=== PATIENT | female | born 1995 | race American Indian/Alaskan Native ===

== ENCOUNTER 2017-11-26 12:45 | Emergency (ER) | payer MEDICAID, OTHER ==
[2017-11-26 13:51] LABS: Basophils % (Auto) 0.6 % (0.0-1.8); Eosinophils % (Auto) 0.6 % (0.0-4.3); Hematocrit 35.9 % (30.3-42.9); Hemoglobin 12.2 gm/dl (10.1-14.3); Lymphocytes % (Auto) 13.5 % (13.4-35.0); Mean Corpuscular HGB Conc 34 % (30-34); Mean Corpuscular Hemoglobin 31 pg (28-32); Mean Corpuscular Volume 89 fl (79-97); Monocytes # (Auto) 0.4 K/mm3 (0.0-0.8); Monocytes % (Auto) 5.7 % (0.0-7.3); Platelet Count 155 K/mm3 (140-440); Red Blood Count 4.02 M/mm3 (3.65-5.03); Red Cell Distribution Width 13.4 % (13.2-15.2)
[2017-11-26 13:55] LABS: Alanine Aminotransferase 8 units/L (7-56); BUN/Creatinine Ratio 18; Blood Urea Nitrogen 7 mg/dL (7-17); Hemolysis Index 3
--- NOTE | 2017-11-26 15:00 | Emergency Department Report ---
Blank Doc - Documentation Documentation: Patient is a 22-year-old female at 15 weeks and presents with abdominal pain she denies any vaginal bleeding or vaginal discharge will urinalysis blood work and OB ultrasound.
--- NOTE | 2017-11-26 15:57 | Ultrasound Report ---
FINAL REPORT EXAM: US OB > = 14 WEEKS FETUS HISTORY: abd pain TECHNIQUE: Ultrasound evaluation of the gravid uterus PRIORS: Pelvic ultrasound 02/21/2016 FINDINGS: There is a single viable intrauterine with documented cardiac activity. Multiple ultrasound measurements are made to determine a composite gestational age. Nonspecific slight abnormality of ratio. Cephalic index slightly increased at 86.4, upper normal 83.0. Other ratios are within normal limits. There is no evidence of placenta previa or abruption. The maternal cervix is closed. The quantity of visualized amniotic fluid appears grossly normal. No sonographic abnormality in the visualized portion of the anatomy. Heart rate: 152 beats per minute position: Cephalic Placental position: Anterior grade 0 Maternal cervix length: 3.5cm Ultrasound estimated gestational age: 15 weeks 4 days Ultrasound estimated delivery date: 05/16/2018 LMP estimated gestational age: 15 weeks 1 day LMP estimated delivery date: 05/19/2018 22 mm simple appearing cyst in left ovary may be a corpus luteum. IMPRESSION: Single viable intrauterine with the above parameters Nonspecific slightly increased cephalic index
[2017-11-26] MEDS ORDERED: TYLENOL PO ONE (16:12)
--- NOTE | 2017-11-26 16:12 | Emergency Department Report ---
ED Abdominal Pain HPI - General Chief Complaint: Abdominal Pain Stated Complaint: ABDOMINAL ABSCESS Time Seen by Provider: 11/26/17 16:04 Source: patient Mode of arrival: Ambulatory Limitations: No Limitations - History of Present Illness -: Gradual Location: periumbilical - Related Data Previous Rx's Medication Instructions Recorded Last Taken Type Doxycycline [Vibramycin] 100 mg PO Q12HR #28 capsule 02/21/16 Unknown Rx Ketorolac [Toradol] 10 mg PO Q6H PRN #20 tablet 02/21/16 Unknown Rx Ondansetron [Zofran Odt] 4 mg PO QID PRN #20 tab.rapdis 02/21/16 Unknown Rx metroNIDAZOLE [Flagyl] 500 mg PO Q12HR #14 tab 02/21/16 Unknown Rx Allergies Allergy/AdvReac Type Severity Reaction Status Date / Time No Known Allergies Allergy Verified 11/26/17 12:52 ED Review of Systems ROS: Stated complaint: ABDOMINAL ABSCESS Other details as noted in HPI Comment: All other systems reviewed and negative Skin: other (PERIUMBIILICAL PAIN) ED Past Medical Hx - Past Medical History Previous Medical History?: No - Surgical History Past Surgical History?: No - Social History Smoking Status: Never Smoker Substance Use Type: None - Medications Home Medications: Home Medications Medication Instructions Recorded Confirmed Last Taken Type Doxycycline [Vibramycin] 100 mg PO Q12HR #28 capsule 02/21/16 Unknown Rx Ketorolac [Toradol] 10 mg PO Q6H PRN #20 tablet 02/21/16 Unknown Rx Ondansetron [Zofran Odt] 4 mg PO QID PRN #20 tab.rapdis 02/21/16 Unknown Rx metroNIDAZOLE [Flagyl] 500 mg PO Q12HR #14 tab 02/21/16 Unknown Rx ED Physical Exam - General Limitations: No Limitations General appearance: alert - Head Head exam: Present: atraumatic - Eye Eye exam: Present: normal appearance - ENT ENT exam: Present: normal exam, mucous membranes moist - Neck Neck exam: Present: normal inspection - Respiratory Respiratory exam: Present: normal lung sounds bilaterally - Cardiovascular Cardiovascular Exam: Present: regular rate - GI/Abdominal GI/Abdominal exam: Present: soft, normal bowel sounds, other (GRAVID). Absent: distended, tenderness, guarding, rebound, rigid, diminished bowel sounds, hyperactive bowel sounds, hypoactive bowel sounds, organomegaly, mass, bruit, pulsatile mass, hernia - Extremities Exam Extremities exam: Present: normal inspection - Back Exam Back exam: Present: normal inspection - Neurological Exam Neurological exam: Present: alert, oriented X3, CN II-XII intact - Psychiatric Psychiatric exam: Present: normal affect, normal mood - Skin Skin exam: Present: warm, dry, intact, normal color ED Course Vital Signs 11/26/17 12:52 Pulse Rate 100 H Respiratory 16 Rate Blood Pressure 124/59 O2 Sat by Pulse 99 Oximetry - Reevaluation(s) Reevaluation #1: 11/26/17 16:15 Patient presents to the ER today with a very dramatic presentation of bellybutton peristasis she states it is so bad that she cannot sleep at night. Patient is 15 weeks . No vaginal bleeding or discharge. 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 She is on vitamins. Lab work was noted beta-hCG noted. UA noted. Ultrasound noted heart tones and activity present. This is patient's first she is on small petite side baseline. Discussion about expectations of PREG Patient educated on pain management. She will follow up with OB next week. ED Medical Decision Making - Lab Data Result diagrams: 11/26/17 13:05 11/26/17 13:05 - Radiology Data Radiology results: report reviewed - Medical Decision Making SEE NOTE - Differential Diagnosis RO SPONT AB Critical care attestation.: If time is entered above; I have spent that time in minutes in the direct care of this critically ill patient, excluding procedure time. ED Disposition Clinical Impression: , Umbilical pain Disposition: - TO HOME OR SELFCARE Is pt being admited?: No Does the pt Need Aspirin: No Condition: Stable Instructions: (ED) Additional Instructions: FOLLOW UP WITH OBGYN THIS WEEK TAKE TYLENOL FOR PAIN CONTINUE YOUR VITAMINS MAKE SURE YOU TELL OBGYN YOU WERE HERE SO THAT THEY CAN GET YOUR RESULTS. Referrals: PRIMARY CARE, [Primary Care Provider] - 3-5 Days Time of Disposition: 16:10
[2017-11-26 16:41] VITALS: BP 111/55
== END 2017-11-26 16:36 | disposition home or self-care (01) ==
LOC: ED 12:45
DX: O26.891 Other specified pregnancy related conditions, first trimester (principal); R10.33 Periumbilical pain; Z3A.15 15 weeks gestation of pregnancy
CPT/HCPCS: 36415; 76805; 80053; 84702; 84703; 85025; 86850; 86900; 86901

== ENCOUNTER 2018-05-29 20:29 | Inpatient (IN) | payer OTHER, MEDICAID ==
[2018-05-29] MEDS ORDERED: CERVIDIL VG ONE (21:33)
[2018-05-29] MEDS ORDERED: SUBLIMAZE IV PRN (21:33)
[2018-05-29 21:48] LABS: Hematocrit 35.9 % (30.3-42.9); Hemoglobin 12.2 gm/dl (10.1-14.3); Mean Corpuscular HGB Conc 34 % (30-34); Mean Corpuscular Hemoglobin 31 pg (28-32); Mean Corpuscular Volume 91 fl (79-97); Platelet Count 150 K/mm3 (140-440); Red Blood Count 3.97 M/mm3 (3.65-5.03); Red Cell Distribution Width 13.4 % (13.2-15.2)
[2018-05-29] MEDS ORDERED: LACTATED RINGERS 1,000 ML IV SCH (22:00)
[2018-05-29] MEDS ORDERED: BRETHINE IVP PRN (22:41)
[2018-05-29] MEDS ORDERED: MINERAL OIL PO PRN (22:41)
[2018-05-29] MEDS ORDERED: ZOFRAN IV PRN (22:41)
[2018-05-29] MEDS ORDERED: NARCAN 0.4 MG/1 ML IV PRN (22:41)
[2018-05-29] MEDS ORDERED: XYLOCAINE 2% INFILTRATI ONE (22:41)
[2018-05-29] MEDS ORDERED: PHENERGAN PO PRN (22:41)
[2018-05-29] MEDS ORDERED: BRETHINE SUB-Q PRN (22:41)
--- NOTE | 2018-05-29 22:49 | History and Physical Report ---
History of Present Illness Date of examination: 05/29/18 Date of admission: 05/29/18 20:29 Chief complaint: IOL for post dates History of present illness: This is a a22 yo at 41 + weeks admitted to labor and delivery for IOL. She is a patient of [facility]. Her problem list include UTi treated with abx and jorge neg. 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 She has anemia on iron once a day. Past History Past Medical History: no pertinent history Past Surgical History: no surgical history APPLIANCE ASSEMBLER History: herpes Family/Genetic History: sickle cell/trait (anemia ), other (pulmonary embolism ) Social history: smoking, alcohol abuse. denies: prescription drug abuse - Obstetrical History Expected Date of Delivery: 05/19/18 Actual Gestation: 41 Week(s) 3 Day(s) : 2 Para: 0 Hx # Term Pregnancies: 0 Number of Pregnancies: 0 Spontaneous Abortions: 0 Induced : 1 Number of Living Children: 0 Medications and Allergies Allergies Allergy/AdvReac Type Severity Reaction Status Date / Time No Known Allergies Allergy Verified 11/26/17 12:52 Home Medications Medication Instructions Recorded Confirmed Last Taken Type Doxycycline [Vibramycin] 100 mg PO Q12HR #28 capsule 02/21/16 Unknown Rx Ketorolac [Toradol] 10 mg PO Q6H PRN #20 tablet 02/21/16 Unknown Rx Ondansetron [Zofran Odt] 4 mg PO QID PRN #20 tab.rapdis 02/21/16 Unknown Rx metroNIDAZOLE [Flagyl] 500 mg PO Q12HR #14 tab 02/21/16 Unknown Rx Active Meds: Active Medications Butorphanol Tartrate (Stadol) 2 mg IV Q2H PRN PRN Reason: Pain , Severe (7-10) Fentanyl (Sublimaze) 100 mcg IV Q2H PRN PRN Reason: Labor Pain Lactated Ringer's (Lactated Ringers) 1,000 mls @ 125 mls/hr IV DIRECT CRISTINA Review of Systems All systems: negative - Vital Signs Vital signs: Vital Signs Pulse Pulse Ox 79 99 05/29/18 21:00 05/29/18 21:00 Temp Pulse Resp BP Pulse Ox 98.1 F 64 18 135/65 99 05/29/18 21:14 05/29/18 22:46 05/29/18 21:14 05/29/18 21:22 05/29/18 22:46 - Physical Exam Breasts: Positive: normal Cardiovascular: Regular rate, Normal S1 Lungs: Positive: Clear to auscultation, Normal air movement Abdomen: Positive: normal appearance, soft, normal bowel sounds. Negative: distention, tenderness, guarding Genitourinary (Female): Positive: normal external genitalia, normal perenium Vulva: both: normal Vagina: Positive: normal moisture Uterus: Positive: normal size Anus/Rectum: Positive: normal perianal skin Extremities: Positive: normal Deep Tendon Reflex Grade: Normal +2 - Obstetrical FHR: category 1 Uterine Contraction Monitor Mode: Palpation Cervical Dilatation: 0 Cervical Effacement Percentage: 40 station: -3 Uterine Tone Measurement Phase: Resting Results Result Diagrams: 05/29/18 21:28 All other labs normal. Assessment and Plan A/P HD#1 IOL for postdates GBS neg induction with cervidil offer epidural close monitor of maternal and fetus status epect vaginal delivery
[2018-05-29] MEDS ORDERED: PITOCin/NS 20 UNIT/1000ML DRIP 20 UNITS/1,000 ML BAG IV SCH (23:00)
[2018-05-29] MEDS ORDERED: PITOCin/NS 30 UNIT/500ML 30 UNITS/500 ML BAG IV SCH ×2 (23:00)
[2018-05-30] MEDS: LACTATED RINGERS 1,000 ML IV SCH ×2 (00:36→02:49)
[2018-05-30] MEDS ORDERED: AMBIEN PO PRN (01:01)
--- NOTE | 2018-05-30 07:50 | Event Note ---
Date: 05/30/18 Cervidil placed at 2339 reactive and Category 1 tracing irreg contractions P: D/C Cervidil as ordered Evaluate for cervical change and proceed with induction for postdates
[2018-05-30] MEDS: CYTOTEC VG PRN ×2 (15:33→21:17)
[2018-05-31] MEDS: STADOL IV PRN ×2 (03:32→07:41)
[2018-05-31] MEDS: LACTATED RINGERS 1,000 ML IV SCH ×3 (03:36→13:00)
--- NOTE | 2018-05-31 11:30 | Progress Note ---
Assessment and Plan A: IUP at 41w5d Day 2 of induction SROM this AM GBS Negative P: Routine intrapartum care Epidural Continue pitocin augmentation Subjective - Subjective Date of service: 05/31/18 Principal diagnosis: IUP at 41 wks undergoing induction of labor Interval history: Pt experienced SROM this morning. Very uncomfortable with contractions. Patient reports: other (Per HPI ) Objective - Vital Signs Vital Signs: Vital Signs - 12hr 05/30/18 05/30/18 05/30/18 23:50 23:54 23:55 Temperature Pulse Rate 94 H 60 56 L Blood Pressure O2 Sat by Pulse 98 93 98 Oximetry 05/31/18 05/31/18 05/31/18 00:00 00:05 00:10 Temperature Pulse Rate 60 57 L 59 L Blood Pressure O2 Sat by Pulse 97 95 97 Oximetry 05/31/18 05/31/18 05/31/18 00:15 03:26 03:37 Temperature Pulse Rate 68 55 L 75 Blood Pressure 145/73 O2 Sat by Pulse 99 97 Oximetry 05/31/18 05/31/18 05/31/18 03:42 03:47 03:52 Temperature Pulse Rate 68 67 60 Blood Pressure O2 Sat by Pulse 98 97 98 Oximetry 05/31/18 05/31/18 05/31/18 03:57 04:02 04:07 Temperature Pulse Rate 73 65 64 Blood Pressure O2 Sat by Pulse 98 97 97 Oximetry 05/31/18 05/31/18 05/31/18 04:12 04:25 04:26 Temperature Pulse Rate 78 67 64 Blood Pressure 140/80 O2 Sat by Pulse 97 97 Oximetry 05/31/18 05/31/18 05/31/18 04:31 04:36 04:41 Temperature Pulse Rate 65 67 58 L Blood Pressure O2 Sat by Pulse 97 98 97 Oximetry 05/31/18 05/31/18 05/31/18 04:46 04:51 06:25 Temperature Pulse Rate 63 62 53 L Blood Pressure 149/76 O2 Sat by Pulse 99 97 Oximetry 05/31/18 05/31/18 05/31/18 07:00 07:25 07:51 Temperature 97.5 F L Pulse Rate 54 L 59 L Blood Pressure 150/81 O2 Sat by Pulse 96 Oximetry 05/31/18 05/31/18 05/31/18 07:56 08:01 08:06 Temperature Pulse Rate 62 60 58 L Blood Pressure O2 Sat by Pulse 97 96 96 Oximetry 05/31/18 05/31/18 05/31/18 08:11 08:16 08:21 Temperature Pulse Rate 63 57 L 59 L Blood Pressure O2 Sat by Pulse 96 96 96 Oximetry 05/31/18 05/31/18 05/31/18 08:24 08:26 10:08 Temperature Pulse Rate 62 57 L 58 L Blood Pressure 152/73 135/87 O2 Sat by Pulse 93 96 Oximetry 05/31/18 05/31/18 10:25 11:25 Temperature Pulse Rate 53 L 54 L Blood Pressure 161/80 170/84 O2 Sat by Pulse Oximetry - Exam Breasts: deferred Cardiovascular: Regular rate Lungs: Clear to auscultation Abdomen: Present: soft (gravid ) Uterus: Present: normal (gravid ) FHR: auscultation normal Uterine Contraction Monitor Mode: External Cervical Dilatation: 1 Cervical Effacement Percentage: 80 (per RN ) station: -1 Uterine Contraction Pattern: Regular Uterine Tone Measurement Phase: Resting Uterine Contraction Intensity: Strong/Firm - Labs Labs: Laboratory Results - last 24 hr 05/29/18 21:28 RPR Nonreactive
[2018-05-31] MEDS ORDERED: fentaNYL-BUPIV 2 MCG/ML-0.125% 200 MCG/100 ML BAG EPIDURAL SCH (13:00)
[2018-05-31] MEDS ORDERED: NARCAN 2 MG/2 ML IV PRN (13:00)
--- NOTE | 2018-05-31 13:40 | Progress Note ---
Assessment and Plan A: Term Late decels Remote from delivery P: Primary C/S Subjective - Subjective Date of service: 05/31/18 Principal diagnosis: IUP at 41 wks undergoing induction of labor Patient reports: loss of fluid, movement normal, contractions, other (Per HPI ), no new complaints, no vaginal bleeding Objective - Vital Signs Vital Signs: Vital Signs - 12hr 05/31/18 05/31/18 05/31/18 03:26 03:37 03:42 Temperature Pulse Rate 55 L 75 68 Blood Pressure 145/73 O2 Sat by Pulse 97 98 Oximetry 05/31/18 05/31/18 05/31/18 03:47 03:52 03:57 Temperature Pulse Rate 67 60 73 Blood Pressure O2 Sat by Pulse 97 98 98 Oximetry 05/31/18 05/31/18 05/31/18 04:02 04:07 04:12 Temperature Pulse Rate 65 64 78 Blood Pressure O2 Sat by Pulse 97 97 97 Oximetry 05/31/18 05/31/18 05/31/18 04:25 04:26 04:31 Temperature Pulse Rate 67 64 65 Blood Pressure 140/80 O2 Sat by Pulse 97 97 Oximetry 05/31/18 05/31/18 05/31/18 04:36 04:41 04:46 Temperature Pulse Rate 67 58 L 63 Blood Pressure O2 Sat by Pulse 98 97 99 Oximetry 05/31/18 05/31/18 05/31/18 04:51 06:25 07:00 Temperature 97.5 F L Pulse Rate 62 53 L Blood Pressure 149/76 O2 Sat by Pulse 97 Oximetry 05/31/18 05/31/18 05/31/18 07:25 07:51 07:56 Temperature Pulse Rate 54 L 59 L 62 Blood Pressure 150/81 O2 Sat by Pulse 96 97 Oximetry 05/31/18 05/31/18 05/31/18 08:01 08:06 08:11 Temperature Pulse Rate 60 58 L 63 Blood Pressure O2 Sat by Pulse 96 96 96 Oximetry 05/31/18 05/31/18 05/31/18 08:16 08:21 08:24 Temperature Pulse Rate 57 L 59 L 62 Blood Pressure O2 Sat by Pulse 96 96 93 Oximetry 05/31/18 05/31/18 05/31/18 08:26 10:08 10:25 Temperature Pulse Rate 57 L 58 L 53 L Blood Pressure 152/73 135/87 161/80 O2 Sat by Pulse 96 Oximetry 05/31/18 05/31/18 05/31/18 11:25 12:25 12:33 Temperature Pulse Rate 54 L 68 71 Blood Pressure 170/84 144/65 O2 Sat by Pulse 98 Oximetry 05/31/18 05/31/18 05/31/18 12:38 12:42 12:43 Temperature Pulse Rate 63 65 67 Blood Pressure 126/63 O2 Sat by Pulse 99 98 Oximetry 05/31/18 05/31/18 05/31/18 12:45 12:48 12:51 Temperature Pulse Rate 71 70 80 Blood Pressure 129/61 136/68 130/77 O2 Sat by Pulse 98 Oximetry 05/31/18 05/31/18 05/31/18 12:53 12:54 12:57 Temperature Pulse Rate 62 61 71 Blood Pressure 132/68 124/61 O2 Sat by Pulse 100 Oximetry 05/31/18 05/31/18 05/31/18 12:58 13:00 13:03 Temperature Pulse Rate 70 67 74 Blood Pressure 122/59 123/63 O2 Sat by Pulse 99 99 Oximetry 05/31/18 05/31/18 05/31/18 13:06 13:08 13:09 Temperature Pulse Rate 67 65 67 Blood Pressure 121/61 131/62 O2 Sat by Pulse 99 Oximetry 05/31/18 05/31/18 05/31/18 13:12 13:13 13:15 Temperature Pulse Rate 64 68 71 Blood Pressure 126/62 132/69 O2 Sat by Pulse 97 Oximetry 05/31/18 05/31/18 05/31/18 13:18 13:21 13:23 Temperature Pulse Rate 67 76 59 L Blood Pressure 126/66 127/65 O2 Sat by Pulse 99 99 Oximetry 05/31/18 05/31/18 05/31/18 13:24 13:27 13:28 Temperature Pulse Rate 61 56 L 61 Blood Pressure 123/65 129/67 O2 Sat by Pulse 98 Oximetry 05/31/18 05/31/18 05/31/18 13:30 13:33 13:36 Temperature Pulse Rate 61 64 67 Blood Pressure 132/74 129/78 130/80 O2 Sat by Pulse 99 Oximetry 05/31/18 05/31/18 13:38 13:39 Temperature Pulse Rate 59 L 56 L Blood Pressure 135/69 O2 Sat by Pulse 99 Oximetry - Exam Breasts: deferred FHR: category 2 FHR comments: rep late decels with minimal variability Uterine Contraction Monitor Mode: External Cervical Dilatation: 3 Cervical Effacement Percentage: 70 station: -2 - Labs Labs: Laboratory Results - last 24 hr 05/29/18 21:28 RPR Nonreactive
[2018-05-31] MEDS ORDERED: BICITRA PO ONE (13:44)
[2018-05-31] MEDS ORDERED: REGLAN IV ONE (13:44)
[2018-05-31] MEDS ORDERED: PEPCID IV ONE (13:44)
[2018-05-31] MEDS ORDERED: LACTATED RINGERS 1,000 ML IV SCH (14:00)
[2018-05-31] MEDS ORDERED: ANCEF/STERILE WATER 2 GM/20 ML 2 GM/20 ML SYRINGE IV NR (14:00)
[2018-05-31] MEDS ORDERED: PITOCin/NS 20 UNIT/1000ML DRIP 20 UNITS/1,000 ML BAG IV SCH ×2 (14:00→18:07)
[2018-05-31] MEDS ORDERED: MARCAINE 0.5% 0 ML INFILTRATI ONE (14:03)
[2018-05-31] MEDS ORDERED: XYLOCAINE MPF 2% ONE ×3 (14:05→14:23)
[2018-05-31] MEDS ORDERED: WATER FOR IRRIG STERILE IR ONE (14:20)
[2018-05-31] MEDS ORDERED: NACL 0.9% IR ONE (14:20)
[2018-05-31] MEDS ORDERED: VERSED ONE (14:46)
[2018-05-31] MEDS ORDERED: SUBLIMAZE ONE (15:23)
--- NOTE | 2018-05-31 15:25 | Procedure Note ---
OB Delivery Note - Delivery Date of Delivery: 05/31/18 Surgeon: KATHRYN RAGLAND Estimated blood loss: other (600 mL) - Section Preop diagnosis: nonreassuring FHR tracing Postop diagnosis: same section procedure: section, primary low transverse Disposition: PACU Complications: none Narrative: Please see operative note. - Infant A at 1 minute: 8 at 5 minutes: 9 Infant Gender: Male (2689g (5lb 15 oz) @ 1438 pm)
--- NOTE | 2018-05-31 15:29 | Operative Report ---
Operative Report Operative Report: Date of procedure:May 31, 2018 Preoperative diagnosis: 1) IUP at 41w5d 2) Intolerance to Labor 3) NRFHTs - repetitive lates Postoperative diagnosis: Same Procedure: Primary low transverse section Surgeon: Megan Song M.D. Anesthesia: Epidural Findings: 1) Viable male , Apgars 8 and 9, weight 2689g, (5 lb 15 oz) in vertex presentation 2) Normal-appearing uterus ovaries and tubes Estimated blood loss: 600 mL IV fluids: 1000 mL Urine output: 200 mL, clear at the end of the procedure Drains: [place] to gravity Specimens: None Complications: None. Counts correct x 3 Disposition: Stable to PACU Indication for procedure: Pt is a 22 year old at 41w5d who was undergoing induction of labor and began to have repetitive late decelerations remote from delivery. The decision was made to proceed with section. Operation in detail: After the risks, benefits, alternatives and complications were explained to the patient she gave informed consent for the procedure. She was subsequently taken to the operating room where epidural anesthesia was noted to be adequate. She was subsequently placed in the dorsal supine position with leftward tilt and prepped and draped in a normal sterile fashion. heart tones were noted to be in the 145s prior to incision. A timeout was performed. A Pfannenstiel skin incision was made with the knife and carried down to the layer of the fascia with the Bovie. The fascia was incised in the midline and the fascial incision was extended bilaterally with the Bovie. Attention was then turned to the superior aspect of the incision which was grasped with two Kochers, tented up, and dissected off the rectus muscles. Attention was then turned to the inferior aspect of the incision which was grasped with two Kochers , tented up and dissected off the rectus muscles. The rectus muscles were then in the midline. The peritoneum was then entered bluntly. The peritoneal incision was extended with good visualization of the bladder. The peritoneal incision was then stretched. The bladder blade was placed. The vesicouterine peritoneum was grasped with smooth pickups and incised with Metzenbaum scissors. Metzenbaum scissors were used to extend the incision bilaterally. The bladder flap was then created digitally and the bladder blade was replaced. A transverse incision was made in the lower uterine segment with a knife and extended bilaterally with the bandage scissors. The head was delivered without difficulty followed by shoulders and body. was bulb suctioned at delivery. The cord was clamped and cut and the was handed to NICU staff in attendance. Cord blood was collected. The placenta was then delivered manually. The uterus was then cleared of all clots and debris. The hysterotomy was then reapproximated with 0 Vicryl in a running locked fashion. A second layer of the same suture was used in imbricating fashion. The hysterotomy was inspected and hemostasis was noted. The gutters were irrigated and cleared of all clots and debris. The hysterotomy was again inspected and noted to be hemostatic. Surgicel was placed over the hysterotomy. The peritoneum was reapproximated with 2-0 Vicryl in a running fashion incorporating the rectus muscles. The fascia was reapproximated with 0 Vicryl in a running fashion. The subcutaneous tissue was reapproximated with 3-0 Vicryl in a running fashion. The skin was reapproximated with 4-0 Vicryl in a subcuticular fashion. The incision was then covered with steri strips and a pressure dressing. The procedure was then ended. The patient tolerated the procedure well and was taken to the PACU in stable condition. All instrument, lap, and needle counts were correct 3.
[2018-05-31] MEDS ORDERED: ZOFRAN IV PRN (15:46)
[2018-05-31] MEDS ORDERED: NARCAN 0.4 MG/1 ML IV PRN ×2 (15:46→18:07)
[2018-05-31] MEDS ORDERED: PHENERGAN PO PRN (15:46)
[2018-05-31] MEDS ORDERED: BENADRYL IV PRN (15:46)
[2018-05-31] MEDS ORDERED: DILAUDID IV PRN (15:46)
[2018-05-31] MEDS ORDERED: PHENERGAN PR PRN (15:46)
[2018-05-31] MEDS ORDERED: TORADOL IV PRN (15:47)
[2018-05-31] MEDS ORDERED: SODIUM CHLORIDE FLUSH SYRINGE 10 ML IV NR ×2 (16:00→18:07)
--- NOTE | 2018-05-31 16:35 | Anesthesia Consultation ---
Anesthesia Consult and Med Hx - Airway Anesthetic Teeth Evaluation: Good ROM Head & Neck: Adequate Mental/Hyoid Distance: Adequate Mallampati Class: Class II Intubation Access Assessment: Probably Good - Pulmonary Exam CTA: Yes - Cardiac Exam Cardiac Exam: RRR - Pre-Operative Health Status ASA Pre-Surgery Classification: ASA2, Emergency Proposed Anesthetic Plan: Epidural - Pulmonary Hx Smoking: No Hx Asthma: No COPD: No Hx Pneumonia: No - Cardiovascular System Hx Hypertension: No - Central Nervous System Hx Seizures: No Hx Psychiatric Problems: No (anxiety) - Endocrine Hx Renal Disease: No Hx End Stage Renal Disease: No Hx Hypothyroidism: No Hx Hyperthyroidism: No - Hematic Hx Anemia: No Hx Sickle Cell Disease: No - Other Systems Hx Alcohol Use: No
[2018-05-31] MEDS ORDERED: KETALAR ONE (16:37)
[2018-05-31] MEDS ORDERED: MYLICON PO PRN (18:07)
[2018-05-31] MEDS ORDERED: LANSINOH TP PRN (18:07)
[2018-05-31] MEDS ORDERED: TUCKS PAD TP PRN (18:07)
[2018-05-31] MEDS: PERCOCET 5/325 PO PRN (21:30)
[2018-05-31] MEDS: ANCEF/NS 1 GM/50 ML 1 GM/50 ML BAG IV SCH (21:35)
[2018-05-31] MEDS: D5LR 1,000 ML IV SCH (21:39)
[2018-05-31] MEDS: TORADOL IV PRN (23:34)
[2018-06-01] MEDS: PERCOCET 5/325 PO PRN ×4 (04:08→18:55)
[2018-06-01] MEDS ORDERED: M-M-R II VACCINE SUB-Q ONE (06:00)
[2018-06-01] MEDS ORDERED: BOOSTRIX IM ONE (06:00)
[2018-06-01] MEDS: TORADOL IV PRN (06:10)
[2018-06-01] MEDS: ANCEF/NS 1 GM/50 ML 1 GM/50 ML BAG IV SCH (06:11)
[2018-06-01] MEDS: D5LR 1,000 ML IV SCH (06:14)
[2018-06-01 06:17] LABS: Hematocrit 34.4 % (30.3-42.9); Hemoglobin 11.9 gm/dl (10.1-14.3)
[2018-06-01] MEDS: FEOSOL PO SCH (08:42)
--- NOTE | 2018-06-01 09:05 | Progress Note ---
Assessment and Plan O: VSS AF PP H/H: 11.9/34.4 A: Stable POD #1 P: Routine orders Subjective - Subjective Date of service: 06/01/18 Principal diagnosis: IUP at 41 wks undergoing induction of labor Patient reports: appetite normal (Taking regular diet this am), voiding normally , pain well controlled, flatus, ambulating normally [place]: doing well, bottle feeding Objective - Vital Signs Latest vital signs: Vital Signs Temp Pulse Resp BP BP Pulse Ox 06/01/18 07:48 98.2 F 89 18 107/60 96 06/01/18 06:10 18 06/01/18 04:08 20 06/01/18 04:05 98.0 F 68 20 128/53 06/01/18 00:00 98 F 77 20 138/54 05/31/18 23:34 18 05/31/18 21:30 20 05/31/18 20:05 98.0 F 86 20 134/75 05/31/18 17:25 98.6 F 70 20 123/65 05/31/18 16:41 74 18 139/69 99 05/31/18 16:26 72 14 138/77 98 05/31/18 16:11 66 14 137/75 99 05/31/18 15:56 73 14 147/80 99 05/31/18 15:51 89 22 134/77 98 05/31/18 15:46 99.2 F 72 16 144/55 99 05/31/18 15:41 99.2 F 74 14 143/71 99 05/31/18 14:19 77 131/77 96 05/31/18 14:06 64 147/95 05/31/18 14:03 57 L 142/86 05/31/18 14:00 57 L 146/83 05/31/18 13:57 62 143/81 05/31/18 13:54 59 L 143/78 05/31/18 13:53 59 L 100 05/31/18 13:51 56 L 148/77 05/31/18 13:48 59 L 126/71 100 05/31/18 13:45 59 L 137/75 05/31/18 13:43 56 L 100 05/31/18 13:42 55 L 137/74 05/31/18 13:39 56 L 135/69 05/31/18 13:38 59 L 99 05/31/18 13:36 67 130/80 05/31/18 13:33 64 129/78 99 05/31/18 13:30 61 132/74 05/31/18 13:28 61 98 05/31/18 13:27 56 L 129/67 05/31/18 13:24 61 123/65 05/31/18 13:23 59 L 99 05/31/18 13:21 76 127/65 05/31/18 13:18 67 126/66 99 05/31/18 13:15 71 132/69 05/31/18 13:13 68 97 05/31/18 13:12 64 126/62 05/31/18 13:09 67 131/62 05/31/18 13:08 65 99 05/31/18 13:06 67 121/61 05/31/18 13:03 74 123/63 99 05/31/18 13:00 67 122/59 05/31/18 12:58 70 99 05/31/18 12:57 71 124/61 05/31/18 12:54 61 132/68 05/31/18 12:53 62 100 05/31/18 12:51 80 130/77 05/31/18 12:48 70 136/68 98 05/31/18 12:45 71 129/61 05/31/18 12:43 67 98 05/31/18 12:42 65 126/63 05/31/18 12:38 63 99 05/31/18 12:33 71 98 05/31/18 12:25 68 144/65 05/31/18 11:25 54 L 170/84 05/31/18 10:25 53 L 161/80 05/31/18 10:08 58 L 135/87 Intake and Output 05/31/18 06/01/18 06/01/18 22:59 06:59 14:59 Intake Total 320 1120 Output Total 600 600 Balance -280 520 Intake: IV 200 1000 ANCEF/NS 1 GM/50 ML 1 gm 50 In 50 ml @ 100 mls/hr IV Q8H CRISTINA Rx#:[id number] D5lr 1,000 ml @ 125 mls/ 1000 hr IV DIRECT CRISTINA Rx#: [id number] Oral 120 120 Output: Urine 600 600 Indwelling Catheter 500 600 Other: Total, Intake Amount 120 120 Total, Output Amount 500 600 Estimated Blood Loss 600 - Exam Breasts: Present: deferred Abdomen: Present: normal appearance, soft, tenderness. Absent: distention Uterus: Present: normal, firm, fundal height below umbilicus. Absent: bogginess , tenderness Extremities: Present: normal. Absent: edema Incision: Present: normal, dry, intact, dressed
[2018-06-01] MEDS ORDERED: MILK OF MAGNESIA PO SCH (16:00)
[2018-06-02] MEDS: PERCOCET 5/325 PO PRN ×3 (02:34→23:57)
--- NOTE | 2018-06-02 09:01 | Progress Note ---
Assessment and Plan A/P POD#2 s/p primary c/sec for distress VSS continue routine care valtrex for hsv2 outbreak MOM for flatus Subjective - Subjective Date of service: 06/02/18 Principal diagnosis: IUP at 41 wks undergoing induction of labor Interval history: This is a a22 yo at 41 + weeks admitted to labor and delivery for IOL. She is a patient of [facility]. Her problem list include UTi treated with abx and jorge neg. 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 She has anemia on iron once a day. Patient reports: appetite normal, voiding normally, pain well controlled, flatus , ambulating normally [place]: doing well Objective - Vital Signs Latest vital signs: Vital Signs Temp Pulse Resp BP BP Pulse Ox 06/02/18 00:00 98.0 F 70 20 123/66 06/01/18 15:44 97.9 F 86 18 107/57 98 06/01/18 11:35 98.6 F 93 H 18 100/54 96 Intake and Output 06/01/18 06/02/18 06/02/18 23:59 07:59 15:59 Intake Total 780 240 Output Total 500 Balance 280 240 Intake: Oral 780 240 Output: Urine 500 Indwelling Catheter 500 Other: Total, Intake Amount 240 240 Total, Output Amount 500 # Voids Indwelling Catheter 3 - Exam Breasts: Present: normal Cardiovascular: Present: Regular rate, Normal S1 Lungs: Present: Clear to auscultation, Normal air movement Abdomen: Present: normal appearance, soft, normal bowel sounds. Absent: distention, tenderness, guarding Vulva: both: normal Uterus: Present: normal, firm, fundal height below umbilicus. Absent: bogginess , tenderness Extremities: Present: normal Deep Tendon Reflex Grade: Normal +2 Incision: Present: normal, dry, intact, dressed
[2018-06-02] MEDS ORDERED: CITRATE OF MAGNESIA PO PRN (10:00)
[2018-06-02] MEDS ORDERED: VALTREX PO ONE (10:00)
[2018-06-02] MEDS: FEOSOL PO SCH (12:04)
[2018-06-02] MEDS: MOTRIN PO PRN (23:55)
--- NOTE | 2018-06-03 09:33 | Progress Note ---
Assessment and Plan - Patient Problems (1) Status post primary low transverse section Current Visit: Yes Status: Acute Plan to address problem: Patient doing well Discharge home Subjective - Subjective Date of service: 06/03/18 Principal diagnosis: IUP at 41 wks undergoing induction of labor Interval history: Patient without any significant complaints. She is tolerating a regular diet and her pain is well-controlled. Patient reports: appetite normal, voiding normally, pain well controlled [place]: doing well Objective - Vital Signs Latest vital signs: Vital Signs Temp Pulse Resp BP BP Pulse Ox 06/03/18 07:27 97.4 F L 76 16 128/77 92 06/03/18 00:34 98.8 F 75 20 137/65 96 06/02/18 17:14 98.7 F 87 18 108/63 96 06/02/18 15:45 97.8 F 65 20 117/63 97 Intake and Output 06/02/18 06/03/18 06/03/18 22:59 06:59 14:59 Intake Total 840 Balance 840 Intake: Oral 600 Intake, Free Water 240 Other: Total, Intake Amount 600 Voiding Method Toilet # Voids 3 - Exam Abdomen: Present: normal appearance, soft Uterus: Present: normal, firm
--- NOTE | 2018-06-03 09:35 | Discharge Summary ---
Providers - Providers Date of Admission: 05/29/18 20:29 Date of discharge: 06/03/18 Attending physician: BISMARK MCCLURE MD 05/31/18 18:07 Consult to Curtain Inspector [CONS] Routine Reason For Exam: Primary care physician: BISMARK MCCLURE MD Hospitalization Reason for admission: induction of labor Delivery: Procedure: section, primary low transverse Incision: normal Discharge diagnosis: IUP at term delivered Hospital course: The patient was admitted for induction of labor for postdates. Her intrapartum course was complicated by nonreassuring heart rate tracing with the patient underwent a primary delivery. Please see operative note for details of surgery. Her postoperative course was uneventful. Condition at discharge: Good Disposition: DC-01 TO HOME OR SELFCARE - Discharge Diagnoses (1) Status post primary low transverse section Status: Acute Plan - Discharge Medications Prescriptions: Docusate Sodium [Colace] 100 mg PO BID PRN #60 capsule PRN Reason: Constipation Ibuprofen [Motrin] 800 mg PO Q8HR PRN #60 tablet PRN Reason: Pain, Mild (1-3) Oxycodone HCl/Acetaminophen [Percocet 7.5/325 mg] 1 each PO Q6HR PRN #45 tablet PRN Reason: Pain - Provider Discharge Summary Activity: no sex for 6 weeks, no heavy lifting 4 weeks, no strenuous exercise Diet: routine Instructions: routine Additional instructions: [] Smoking cessation referral if applicable(refer to patient education folder for contact #) [] Refer to [facility] Booklet Call your doctor immediately for: * Fever > 100.5 * Heavy vaginal bleeding ( >1 pad per hour) * Severe persistent headache * Shortness of breath * Reddened, hot, painful area to leg or breast * Drainage or odor from incision. * Keep incision clean and dry at all times and follow doctor's instructions regarding bathing/showering Scheduled follow-up at [place] [facility] in 2 weeks - Follow up plan
[2018-06-03] MEDS: FEOSOL PO SCH (10:15)
[2018-06-03] MEDS: MOTRIN PO PRN (10:15)
[2018-06-03] MEDS: PERCOCET 5/325 PO PRN (10:17)
[2018-06-03 17:04] VITALS: BP 138/93
== END 2018-06-03 17:15 | disposition home or self-care (01) | DRG 765 ==
LOC: LD 20:29 → APU 05-31 17:40 → OB 05-31 17:45
PROVIDERS: ADMIT Obstetrics & Gynecology; ATTEND Obstetrics & Gynecology
PROC: 3E0P7VZ Introduction of Hormone into Female Reproductive, Via Natural or Artificial Opening (ICD-10-PCS; 2018-05-29)
PROC: 10D00Z1 Extraction of Products of Conception, Low, Open Approach (ICD-10-PCS; principal; 2018-05-31)
DX: O48.0 Post-term pregnancy (principal); O98.52 Other viral diseases complicating childbirth; O75.0 Maternal distress during labor and delivery; Z3A.41 41 weeks gestation of pregnancy; O76 Abnormality in fetal heart rate and rhythm complicating labor and delivery; Z37.0 Single live birth; Z83.2 Family history of diseases of the blood and blood-forming organs and certain disorders involving the immune mechanism; Z84.89 Family history of other specified conditions; Z79.899 Other long term (current) drug therapy; Z79.2 Long term (current) use of antibiotics; D64.9 Anemia, unspecified; O99.02 Anemia complicating childbirth; B00.9 Herpesviral infection, unspecified; O99.334 Smoking (tobacco) complicating childbirth; F10.10 Alcohol abuse, uncomplicated; O99.314 Alcohol use complicating childbirth; O42.02 Full-term premature rupture of membranes, onset of labor within 24 hours of rupture
CPT/HCPCS: 36415; 59200; 85014; 85018; 85027; 86592; 86850; 86900; 86901; 99211; A6250; G0463; J0595; J0690; J1170; J1885; J2250; J2590; J2765; J3010; J7120; J7121

== ENCOUNTER 2021-05-09 13:51 | Outpatient (CLI) | payer MEDICAID, OTHER ==
[2021-05-09 14:30] VITALS: BP 119/60
[2021-05-09] MEDS ORDERED: LACTATED RINGERS 500 ML IV ONE (16:00)
[2021-05-09 16:18] LABS: Bacteria,Urine 2+ /HPF (Negative); Bilirubin,Urine NEG (Negative); Blood,Urine NEG (Negative); Color,Urine Straw (Yellow); Protein,Urine <15 mg/dL mg/dL (Negative); Urobilinogen,Urine < 2.0 mg/dL (<2.0); WBC,Urine < 1.0 /HPF (0.0-6.0)
== END 2021-05-09 19:29 | disposition home or self-care (01) ==
LOC: TRG 13:51 → APU 13:52 → TRG 19:29
PROVIDERS: ATTEND Obstetrics & Gynecology
DX: O26.893 Other specified pregnancy related conditions, third trimester (principal); R10.30 Lower abdominal pain, unspecified; Z3A.30 30 weeks gestation of pregnancy
CPT/HCPCS: 59025; 81001; 87086; 96360; 96361; J7120

== ENCOUNTER 2021-08-11 14:26 | Inpatient (IN) | payer MEDICAID ==
[~2021-08-11 14:26] MED LIST: KETOROLAC 30 MG/1 ML INJ ONE
[2021-08-11] MEDS ORDERED: METOCLOPRAMIDE 10 MG/2 ML INJ IV NR (14:53)
[2021-08-11] MEDS ORDERED: BICITRA ORAL LIQD 30ML PO NR (14:53)
[2021-08-11] MEDS ORDERED: FAMOTIDINE 20 MG/2 ML INJ IV NR (14:53)
[2021-08-11] MEDS ORDERED: METHYLERGONOVINE MALEATE 0.2 MG/ML VIAL IM NR (14:54)
[2021-08-11] MEDS ORDERED: ceFAZolin/Water 2 GM/20 ML 2 GM/20 ML SYRINGE IV NR (15:00)
[2021-08-11] MEDS ORDERED: OXYTOCIN DRIP 30 UNITS/500 ML BAG IV SCH ×2 (15:00→20:15)
[2021-08-11 15:21] LABS: Basophils # (Auto) 0.1 K/mm3 (0.0-0.1); Basophils % (Auto) 0.6 % (0.0-1.8); Eosinophils % (Auto) 0.3 % (0.0-4.3); Hematocrit 39.4 % (30.3-42.9); Hemoglobin 12.9 gm/dl (10.1-14.3); Lymphocytes # (Auto) 1.7 K/mm3 (1.2-5.4); Lymphocytes % (Auto) 20.3 % (13.4-35.0); Mean Corpuscular HGB Conc 33 % (30-34); Mean Corpuscular Volume 89 fl (79-97); Monocytes # (Auto) 0.5 K/mm3 (0.0-0.8); Platelet Count 179 K/mm3 (140-440); Red Blood Count 4.44 M/mm3 (3.65-5.03)
[2021-08-11] MEDS: LACTATED RINGERS 1,000 ML IV SCH ×2 (15:25→15:57)
--- NOTE | 2021-08-11 15:41 | Anesthesia Day of Surgery ---
Anesthesia Day of Surgery - Day of Surgery Patient Examined: Yes Patient H&P Reviewed: Yes Patient is NPO: Yes Beta Blockers: No Cardiac Clearance: No Pulmonary Clearance: No Blu's Test: Negative
--- NOTE | 2021-08-11 15:42 | Anesthesia Consultation ---
Anesthesia Consult and Med Hx Date of service: 08/11/21 - Airway Anesthetic Teeth Evaluation: Poor ROM Head & Neck: Adequate Mental/Hyoid Distance: Adequate Mallampati Class: Class II Intubation Access Assessment: Probably Good - Pulmonary Exam CTA: Yes - Cardiac Exam Cardiac Exam: RRR - Pre-Operative Health Status ASA Pre-Surgery Classification: ASA2 Proposed Anesthetic Plan: Spinal - Pulmonary Hx Smoking: No Hx Asthma: No Hx Respiratory Symptoms: No SOB: No COPD: No Home Oxygen Therapy: No Hx Pneumonia: No Hx Sleep Apnea: No - Cardiovascular System Hx Hypertension: No Hx Coronary Artery Disease: No Hx Heart Attack/AMI: No Hx Angina: No Hx Percutaneous Transluminal Coronary Angioplasty (PTCA): No Hx Cardia Arrhythmia: No Hx Pacemaker: No Hx Internal Defibrillator: No Hx Valvular Heart Disease: No Hx Heart Murmur: No Hx Peripheral Vascular Disease: No - Central Nervous System Hx Neuromuscular Disorder: No Hx Seizures: No CVA: No Hx Back Pain: Yes Hx Psychiatric Problems: No (anxiety) - Gastrointestinal Hx Ulcer: No Hx Gastroesophageal Reflux Disease: Yes - Endocrine Hx Renal Disease: No Hx End Stage Renal Disease: No Hx Cirrhosis: No Hx Liver Disease: No Hx Insulin Dependent Diabetes: No Hx Non-Insulin Dependent Diabetes: No Hx Thyroid Disease: No Hx Hypothyroidism: No Hx Hyperthyroidism: No - Hematic Hx Anemia: No Hx Sickle Cell Disease: No - Other Systems Hx Alcohol Use: No Hx Substance Use: No Hx Cancer: No Hx Obesity: No
[2021-08-11] MEDS ORDERED: NALOXONE 0.4 MG/1 ML INJ IV PRN ×2 (15:44→20:15)
--- NOTE | 2021-08-11 16:24 | History and Physical Report ---
History of Present Illness Date of examination: 08/12/21 Date of admission: 08/11/21 14:26 Chief complaint: sent from the office History of present illness: Pt is a 26 year old CLAUDIA 08/17/21 a 39w1d who presents from the office with finding of oligohydramnios on routine obstetric ultrasound. She denies contractions, vaginal bleeding or leakage of fluid. She has had care at [facility] since 12 wks complicated by prior section, nausea and vomiting, GERD, and genital herpes without lesion or prodrome. She is GBS negative. 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 Family/Genetic History: other (anemia ) Social history: no significant social history - Obstetrical History Expected Date of Delivery: 08/17/21 Actual Gestation: 39 Week(s) 2 Day(s) : 3 Para: 1 Hx # Term Pregnancies: 1 Number of Pregnancies: 0 Spontaneous Abortions: 1 Induced : 0 Number of Living Children: 1 Medications and Allergies Allergies Allergy/AdvReac Type Severity Reaction Status Date / Time No Known Allergies Allergy Verified 11/26/17 12:52 Home Medications Medication Instructions Recorded Confirmed Last Taken Type oxyCODONE /ACETAMINOPHEN [Percocet 1 tab PO Q6HR PRN #30 tablet 08/11/21 Unknown Rx 5/325] Active Meds: Active Medications Citric Acid/Sodium Citrate (Bicitra Oral Liqd 30ml) 30 ml PO ONCE NR Stop: 08/11/21 18:00 Last Admin: 08/11/21 15:26 Dose: 30 ml Documented by: Famotidine (Famotidine 20 Mg/2 Ml Inj) 20 mg IV ONCE NR Stop: 08/11/21 18:00 Last Admin: 08/11/21 15:26 Dose: 20 mg Documented by: Hydromorphone HCl (Hydromorphone 1 Mg/1 Ml Inj) 0.5 mg IV Q5M PRN PRN Reason: BREAK Stop: 08/11/21 23:00 Hydromorphone HCl (Hydromorphone 1 Mg/1 Ml Inj) 0.5 mg IV Q4H PRN PRN Reason: breakthrough pain > 7/10 Lactated Ringer's (Lactated Ringers) 1,000 mls @ 2,250 mls/hr IV PREOP CRISTINA Stop: 10/27/21 15:27 Last Admin: 08/11/21 15:57 Dose: 2,250 mls/hr Documented by: Oxytocin/Sodium Chloride (Pitocin/Ns 30 Unit/500ml) 30 units in 500 mls @ 0 mls/hr IV TITR CRISTINA; Protocol Cefazolin Sodium (Ancef/Sterile Water 2 Gm/20 Ml) 2 gm in 20 mls @ 80 mls/hr IV PREOP NR; Protocol Stop: 08/11/21 20:00 Methylergonovine Maleate (Methylergonovine Maleate 0.2 Mg/Ml Vial) 0.2 mg IM ONCE NR Stop: 08/11/21 18:00 Metoclopramide HCl (Metoclopramide 10 Mg/2 Ml Inj) 10 mg IV ONCE NR Stop: 08/11/21 18:00 Last Admin: 08/11/21 15:26 Dose: 10 mg Documented by: Naloxone HCl (Naloxone 0.4 Mg/1 Ml Inj) 0.2 mg IV Q2MIN PRN PRN Reason: Res Rate </= 8 or 02 SAT < 92% Ondansetron HCl (Ondansetron 4 Mg/2 Ml Inj) 4 mg IV Q8H PRN PRN Reason: Nausea And Vomiting Review of Systems All systems: negative - Vital Signs Vital signs: Vital Signs Pulse BP Pulse Ox 82 130/79 100 08/11/21 15:12 08/11/21 15:12 08/11/21 15:12 Temp Pulse Resp BP Pulse Ox 99 H 130/79 100 08/11/21 16:17 08/11/21 15:12 08/11/21 16:17 - Physical Exam Breasts: Positive: deferred Abdomen: Positive: soft (gravid ) Uterus: Positive: enlarged (gravid ) Extremities: Positive: normal - Obstetrical FHR: auscultation normal Uterine Contraction Monitor Mode: External Cervical Dilatation: 0 Uterine Contraction Pattern: Absent Uterine Tone Measurement Phase: Resting Results Result Diagrams: 08/11/21 15:10 Abnormal lab results 08/11/21 Range/Units 15:10 Seg Neutrophils % 72.8 H (40.0-70.0) % All other labs normal. Assessment and Plan A: IUP at 39w1d Previous x 1 Oligohydramnios Nausea and vomiting GERD Genital herpes without lesion or prodrome GBS negative P: Admit to labor and delivery Prepare for repeat section and other indicated procedures
[2021-08-11] MEDS ORDERED: ONDANSETRON 4 MG/2 ML INJ IV PRN (16:30)
[2021-08-11] MEDS ORDERED: HYDROmorphone 1 MG/1 ML INJ IV PRN ×2 (16:30)
[2021-08-11] MEDS ORDERED: PHENYLEPHRINE/NS 1,000 MCG/10 ML SYRINGE (OR USE) IV ONE (16:36)
[2021-08-11] MEDS ORDERED: ceFAZolin/STERILE WATER 2 GM/20 ML SYRINGE IV ONE (16:40)
[2021-08-11] MEDS ORDERED: dexAMETHasone 20 MG/5 ML VIAL ONE (17:28)
[2021-08-11] MEDS ORDERED: BUPIVACAINE/PF (0.25%) 2.5 MG/ML 30 ML VIAL INFILTRATI ONE (17:29)
--- NOTE | 2021-08-11 17:52 | Procedure Note ---
OB Delivery Note - Delivery Date of Delivery: 08/11/21 Surgeon: KATHRYN RAGLAND Estimated blood loss: other (494 mL) - Section Preop diagnosis: repeat , other (Oligohydramnios ) Postop diagnosis: same section procedure: section, repeat low transverse Disposition: PACU Narrative: Please see operative report - Infant A at 1 minute: 9 at 5 minutes: 9 Gender: Male (2985g (6lb 9oz) @ 1701 pm)
--- NOTE | 2021-08-11 17:57 | Operative Report ---
Operative Report Operative Report: Date of procedure: August 11, 2021 Preoperative diagnosis: 1) IUP at 39w1d 2) Previous x 1 3) Oligoh ydramnios Postoperative diagnosis: Same Procedure: Repeat low transverse section Surgeon: Megan Song M.D. Anesthesia: Spinal Findings: 1) Viable male , Apgars 9 and 9, weight 2985 g, (6 lb 9 oz) in cephalic presentation. Nuchal cord x 1 2) Normal-appearing uterus ovaries and tubes Estimated blood loss: 494 mL IV fluids: 1400 mL Urine output: 200 mL, clear at the end of the procedure Drains: [place] to gravity Specimens: None Complications:None. Counts correct x 3 Disposition: Stable to PACU Indication for procedure: Pt is a 26 year old at 39w1d with one prior section and oligohydramnios for repeat section. Operation in detail: After the risks, benefits, alternatives and complications were explained to the patient she gave informed consent for the procedure. She was subsequently taken to the operating room where regional anesthesia was noted to be adequate. She was placed in the dorsal supine position with leftward tilt and prepped and draped in a normal sterile fashion. heart tones were noted prior to incision. A timeout was performed. A Pfannenstiel skin incision was made with the knife and carried down to the layer of the fascia with the Bovie. The fascia was incised in the midline and the fascial incision was extended bilaterally with the Bovie. The fascial incision was then stretched. The rectus muscles were then in the midline and partially transected for adequate visualization. The peritoneum was then entered bluntly. The peritoneal incision was extended with good visualization of the bladder. The peritoneal incision was then stretched. An Gabo retractor was placed. The bladder blade was then placed. The vesicouterine peritoneum was grasped with smooth pick ups and incised with Metzenbaum scissors . A bladder flap was then created digitally and the bladder blade was replaced. A transverse incision was made in the lower uterine segment with a knife and extended bilaterally with the bandage scissors. Amniotomy was performed with egress of clear fluid. head delivered with ease, nuchal cord x 1 reduced, followed by shoulders and body. bulb suctioned at delivery. Cord clamped and cut. handed to NICU staff in attendance. Cord blood was collected. The placenta was then delivered manually. The uterus was then exteriorized and cleared of all clots and debris. The hysterotomy was then reapproximated with 0 Moncryl in a running locked fashion. A second layer of the same suture was used in imbricating fashion. The hysterotomy was inspected and hemostasis was noted. The gutters were irrigated and cleared of all clots and debris. The uterus was placed back into the peritoneal cavity. The hysterotomy was again inspected and noted to be hemostatic. Surgicel was placed over the hysterotomy. The Gabo retractor was removed. The peritoneum was reapproximated with 0 Monocryl in a running fashion incorporating the rectus muscles. Surgicel was placed over the rectus muscles. The fascia was reapproximated with 0 Vicryl in a running fashion. The skin was reapproximated with 3-0 Monocryl in a subcuticular fashion. The incision was then covered with steri strips and a pressure dressing. The procedure was then ended. The patient tolerated the procedure well and was taken to the PACU in stable condition. All instrument, lap, and needle counts were correct 3.
--- NOTE | 2021-08-11 18:05 | Progress Note ---
Spinal Anesthesia Block - Spinal Anesthesia Block Start Time: 16:25 Stop Time: 16:31 Performed by:: HAILEY COLE Procedure: Patient IDed, H&P reviewed, all questions and concerns were answered, and consent was signed. Timeout was performed at bedside. Patient in sitting position. Sterile prep and drape was performed. [3] ml of 1% lidocaine skin wheal at L[3]- L [4]. Needle introducer advanced. 25 gauge spinal needle advanced. Clear, free flowing CSF. negative blood, negative paresthesia. Spinal dose given. All needles removed. Patient tolerated procedure.
--- NOTE | 2021-08-11 18:06 | Progress Note ---
Regional Anesthesia Block - Regional Anesthesia Block Start Time: 17:50 Stop Time: 17:52 Performed By:: HAILEY COLE Procedure: Patient consented for TAP block for post surgical pain management. Patient identified, monitors placed, and time out performed. TAP identified bilaterally via ultrasound. Skin prepped bilaterally with [chlorhexidine] and [22g stimuplex] needle advanced to the TAP. [Marcaine 0.25% 35ml] injected under ultrasound guidance on the [left] side. [Marcaine 0.25% 35ml] injected under ultrasound guidance on the [right] side. Negative aspiration every 5mL, No change in heart rate or rhythm. Patient tolerated the procedure well. No apparent complications seen.
[2021-08-11] MEDS ORDERED: SIMETHICONE 80 MG CHEW TAB PO PRN (20:15)
[2021-08-11] MEDS ORDERED: MORPHINE 4 MG/1 ML INJ IV PRN (20:15)
[2021-08-11] MEDS ORDERED: MAGNESIUM HYDROXIDE (MOM) ORAL LIQD UDC PO PRN (20:15)
[2021-08-11] MEDS ORDERED: WITCH HAZEL/ GLYCERIN PAD TP PRN (20:15)
[2021-08-11] MEDS ORDERED: LANOLIN/ZINC/DIMETHICONE (LANSINOH) 7 GM TP PRN (20:15)
[2021-08-11] MEDS ORDERED: IBUPROFEN 600 MG TAB PO PRN (20:15)
[2021-08-11] MEDS ORDERED: MORPHINE 2 MG/1 ML INJ IV PRN (20:15)
[2021-08-11] MEDS ORDERED: D5W/LACTATED RINGERS 1,000 ML IV SCH (21:00)
[2021-08-11] MEDS: KETOROLAC 30 MG/1 ML INJ IV SCH (22:43)
[2021-08-12] MEDS: KETOROLAC 30 MG/1 ML INJ IV SCH ×2 (03:25→10:02)
[2021-08-12] MEDS: ceFAZolin/NS 1 GM/50 ML 1 GM/50 ML BAG IV SCH ×2 (03:26→10:53)
[2021-08-12] MEDS ORDERED: TETANUS,DIPH,PERTUSS(ACELL) VACCINE 0.5 ML SYRINGE IM ONE (06:00)
[2021-08-12 08:16] LABS: Hematocrit 36.2 % (30.3-42.9); Hemoglobin 12.2 gm/dl (10.1-14.3)
--- NOTE | 2021-08-12 13:46 | Progress Note ---
Assessment and Plan A: POD#1 s/p R. LTCS at term P:Continue with routine care w. discharge anticipated at 48hrs Subjective - Subjective Date of service: 08/12/21 Principal diagnosis: POD#1 s/p R. C/S at term Interval history: Patient is feeling well. Reporting pain is well controlled, decreasing lochia, +flatus and has been ambulating to restroom unassisted. Patient reports: voiding normally, pain well controlled, flatus, bowel movement, ambulating normally [place]: doing well Objective - Vital Signs Latest vital signs: Vital Signs Temp Pulse Resp BP BP Pulse Ox Pulse Ox 08/12/21 08:47 100 08/12/21 08:00 98.1 F 74 18 115/72 08/12/21 04:30 98.6 F 73 16 112/55 97 08/12/21 01:10 100 08/12/21 00:41 18 100 08/12/21 00:14 98.2 F 63 16 128/70 97 08/11/21 22:43 100 08/11/21 20:15 99.0 F 56 L 18 133/74 100 08/11/21 20:00 97.7 F 56 L 17 131/79 08/11/21 19:10 60 12 129/73 100 08/11/21 18:50 63 13 131/71 100 08/11/21 18:20 57 L 13 135/76 100 08/11/21 18:15 61 10 L 131/68 100 08/11/21 18:10 61 12 131/74 100 08/11/21 18:05 55 L 11 L 128/72 100 08/11/21 18:01 97.7 F 60 13 126/74 100 08/11/21 16:17 99 H 100 08/11/21 16:12 90 100 08/11/21 16:07 81 100 08/11/21 16:02 79 100 08/11/21 15:57 85 100 08/11/21 15:52 83 100 08/11/21 15:47 90 98 08/11/21 15:43 92 H 89 08/11/21 15:42 91 H 99 08/11/21 15:37 81 100 08/11/21 15:32 79 99 08/11/21 15:27 121 H 99 08/11/21 15:22 77 100 08/11/21 15:17 75 98 08/11/21 15:12 82 130/79 100 Intake and Output 08/11/21 08/12/21 08/12/21 23:59 07:59 15:59 Intake Total 1650 530 320 Output Total 1365 3200 500 Balance 285 -2670 -180 Intake: IV 1550 50 ANCEF/NS 1 GM/50 ML 1 gm 50 In 50 ml @ 100 mls/hr IV Q8H [facility] Rx#:[id number] Oral 100 480 320 Output: Urine 1365 3200 500 Indwelling Catheter 200 1600 Uretheral ([place]) 690 1600 Void 500 Other: Total, Intake Amount 100 240 320 Total, Output Amount 200 1100 500 - Labs Labs: Abnormal lab results 08/11/21 Range/Units 15:10 Seg Neutrophils % 72.8 H (40.0-70.0) %
[2021-08-12] MEDS: oxyCODONE /ACETAMINOPHEN 5-325MG TAB PO PRN ×2 (15:07→22:27)
--- NOTE | 2021-08-12 17:47 | Post Anesthesia Evaluation ---
- Post Anesthesia Evaluation Patient Participated: Yes Airway Patent: Yes Stable Respiratory Function: Yes Nausea/Vomiting: No Temp > 96.8F: Yes Pain Manageable: Yes Adequeate Hydration: Yes Anesthesia Complications: No Block Receding Appropriately: Yes Patient on Ventilator: No
[2021-08-12] MEDS ORDERED: MEASLES, MUMPS & RUBELLA 12,500 UNIT/0.5 ML VACCINE SUB-Q ONE (17:58)
[2021-08-12] MEDS: IBUPROFEN 800 MG TAB PO PRN (20:04)
[2021-08-13] MEDS: oxyCODONE /ACETAMINOPHEN 5-325MG TAB PO PRN (03:40)
[2021-08-13] MEDS: IBUPROFEN 800 MG TAB PO PRN (05:32)
[2021-08-13 08:46] VITALS: BP 120/74
--- NOTE | 2021-08-13 12:41 | Progress Note ---
Assessment and Plan A: POD#2 s/p R. LTCS at term P: Pt to be discharged home w. f/u in office in 2 weeks. Subjective - Subjective Principal diagnosis: POD#2 s/p R. C/S at term Interval history: POD#2 s/p R. LTCS. Patient is feeling well and is without complaints. Patient reports she is ready to go home Patient reports: appetite normal, voiding normally, dizzy ambulation, pain well controlled, flatus, ambulating normally, no bowel movement : doing well Objective - Vital Signs Latest vital signs: Vital Signs Temp Pulse Resp BP Pulse Ox Pulse Ox 08/13/21 09:54 100 08/13/21 08:45 98.1 F 78 16 120/74 100 08/13/21 03:40 18 08/13/21 00:00 98.1 F 76 18 109/61 99 08/12/21 22:56 97 08/12/21 22:27 18 08/12/21 20:04 18 Intake and Output 08/12/21 08/13/21 08/13/21 23:59 07:59 15:59 Intake Total 136 Output Total 700 Balance -700 136 Intake: Oral 136 Output: Urine 700 Void 700 Other: Total, Intake Amount 136 Total, Output Amount 700 # Voids Void 1
--- NOTE | 2021-08-13 12:43 | Discharge Summary ---
Providers - Providers Date of Admission: 08/11/21 14:26 Date of discharge: 08/13/21 Attending physician: KATHRYN RAGLAND 08/11/21 20:15 Consult to Automotive Design Layout Drafter [CONS] Routine Reason For Exam: Primary care physician: KATHRYN RAGLAND Hospitalization Reason for admission: section, IUP at term (Oligohydramnios) Delivery: Procedure: repeat low transverse Incision: normal, dry Other procedures: none complications: none Discharge diagnosis: IUP at term delivered [place] baby: male Hospital course: Patient presented from the office with finding of oligohydramnios on routine obstetric ultrasound, she went on to have a R. LTCS of viable infant. Her course was uncomplicated. Condition at discharge: Good Disposition: 01 HOME / SELF CARE / HOMELESS Plan - Discharge Medications Prescriptions: Docusate Sodium [Colace] 100 mg PO BID PRN #30 capsule PRN Reason: Constipation Ibuprofen [Motrin 600 MG tab] 600 mg PO Q8H PRN #30 tablet PRN Reason: Pain oxyCODONE /ACETAMINOPHEN [Percocet 5/325] 1 tab PO Q6HR PRN #30 tablet PRN Reason: Pain - Provider Discharge Summary Activity: routine, no sex for 6 weeks, no heavy lifting 4 weeks, no strenuous exercise Diet: routine Instructions: routine Additional instructions: [] Smoking cessation referral if applicable(refer to patient education folder for contact #) [] Refer to [facility] Booklet Call your doctor immediately for: * Fever > 100.5 * Heavy vaginal bleeding ( >1 pad per hour) * Severe persistent headache * Shortness of breath * Reddened, hot, painful area to leg or breast * Drainage or odor from incision. * Keep incision clean and dry at all times and follow doctor's instructions regarding bathing/showering Return to [facility] in 2 weeks for incision check - Follow up plan Follow up: KATHRYN RAGLAND MD [Primary Care Provider] - 14 Days
== END 2021-08-13 17:00 | disposition home or self-care (01) | DRG 765 ==
LOC: APU 14:26 → OB 20:13
PROVIDERS: ADMIT Obstetrics & Gynecology; ATTEND Obstetrics & Gynecology
PROC: 10D00Z1 Extraction of Products of Conception, Low, Open Approach (ICD-10-PCS; principal; 2021-08-11)
DX: O34.211 Maternal care for low transverse scar from previous cesarean delivery (principal); O41.03X0 Oligohydramnios, third trimester, not applicable or unspecified; O98.52 Other viral diseases complicating childbirth; O99.62 Diseases of the digestive system complicating childbirth; K21.9 Gastro-esophageal reflux disease without esophagitis; B00.9 Herpesviral infection, unspecified; O69.81X0 Labor and delivery complicated by cord around neck, without compression, not applicable or unspecified; Z3A.39 39 weeks gestation of pregnancy; Z37.0 Single live birth
CPT/HCPCS: 36415; 85014; 85018; 85025; 86850; 86900; 86901; 99211; G0378; G0463; J0690; J1100; J1885; J2270; J2370; J2765; J7120

== ENCOUNTER 2021-09-19 18:11 | Emergency (ER) | payer MEDICAID ==
[2021-09-19 18:57] LABS: Basophils % (Auto) 0.7 % (0.0-1.8); Eosinophils # (Auto) 0.1 K/mm3 (0.0-0.4); Eosinophils % (Auto) 2.1 % (0.0-4.3); Hematocrit 37.6 % (30.3-42.9); Lymphocytes # (Auto) 1.5 K/mm3 (1.2-5.4); Lymphocytes % (Auto) 26.8 % (13.4-35.0); Mean Corpuscular HGB Conc 32 % (30-34); Mean Corpuscular Volume 89 fl (79-97); Monocytes # (Auto) 0.4 K/mm3 (0.0-0.8); Monocytes % (Auto) 6.6 % (0.0-7.3); Platelet Count 172 K/mm3 (140-440); Red Blood Count 4.22 M/mm3 (3.65-5.03); Red Cell Distribution Width 13.9 % (13.2-15.2)
--- NOTE | 2021-09-19 19:13 | Emergency Department Report ---
<OBIE TERRY - Last Filed: 09/19/21 21:22> ED Female HPI - General Chief complaint: Vaginal Bleeding Stated complaint: HEAVY BLEEDING, 5 WEEKS Time Seen by Provider: 09/19/21 18:33 Source: patient Mode of arrival: Ambulatory Limitations: No Limitations - History of Present Illness Initial comments: Patient is a 26-year-old female presents emergency room complaints of heavy vaginal bleeding that began 2 days ago. She has associated suprapubic abdominal pain. Patient had a performed 5 weeks ago. She states that her MATERIAL PLANNING ANALYST is Dr. [facility] with [facility]. She states that she did have a 2-week follow-up after reports everything was normal at that time. She states that she delivered via at 39 weeks with no complications. She states that this is her first time bleeding after her procedure. She denies any fever, nausea, vomiting, diarrhea, dysuria, vaginal discharge. No past medical history. No allergies to medications. She is not breast-feeding. - Related Data Previous Rx's Medication Instructions Recorded Last Taken Type Naproxen 375 mg PO BID PRN #14 tablet 09/19/21 Unknown Rx medroxyPROGESTERone ACETATE 10 mg PO QDAY 10 Days #10 tablet 09/19/21 Unknown Rx [Provera] Allergies Allergy/AdvReac Type Severity Reaction Status Date / Time No Known Allergies Allergy Verified 08/12/21 07:14 ED Review of Systems Comment: All other systems reviewed and negative ED Past Medical Hx - Past Medical History Hx Hypertension: No Hx Heart Attack/AMI: No Hx Congestive Heart Failure: No Hx Diabetes: No Hx Deep Vein Thrombosis: No Hx Liver Disease: No Hx Renal Disease: No Hx Sickle Cell Disease: No Hx Seizures: No Hx Asthma: No Hx COPD: No Hx HIV: No - Surgical History Hx Pacemaker: No Hx Internal Defibrillator: No - Social History Smoking Status: Never Smoker Substance Use Type: None - Medications Home Medications: Home Medications Medication Instructions Recorded Confirmed Last Taken Type Naproxen 375 mg PO BID PRN #14 tablet 09/19/21 Unknown Rx medroxyPROGESTERone ACETATE 10 mg PO QDAY 10 Days #10 tablet 09/19/21 Unknown Rx [Provera] ED Physical Exam - General Limitations: No Limitations General appearance: alert, in no apparent distress - Head Head exam: Present: atraumatic, normocephalic - Eye Eye exam: Present: normal appearance - ENT ENT exam: Present: mucous membranes moist - Respiratory Respiratory exam: Present: normal lung sounds bilaterally. Absent: respiratory distress, wheezes, rales, rhonchi, stridor, chest wall tenderness, accessory muscle use, decreased breath sounds, prolonged expiratory - Cardiovascular Cardiovascular Exam: Present: regular rate, normal rhythm, normal heart sounds. Absent: systolic murmur, diastolic murmur, rubs, gallop - GI/Abdominal GI/Abdominal exam: Present: soft, tenderness (suprapubic), normal bowel sounds, other (horizontal suprapubic incision from appears clean,dry intact without signs of infection or wound dehiscence). Absent: distended, guarding, rebound, rigid - Neurological Exam Neurological exam: Present: alert, oriented X3 - Psychiatric Psychiatric exam: Present: normal affect, normal mood - Skin Skin exam: Present: warm, dry, intact ED Medical Decision Making - Lab Data Result diagrams: 09/19/21 18:37 09/19/21 18:37 - Medical Decision Making Patient is a 26-year-old female presents emergency room complaints of heavy vaginal bleeding that began 2 days ago. She has associated suprapubic abdominal pain. Patient had a performed 5 weeks ago. She states that her MATERIAL PLANNING ANALYST is Dr. [facility] with [facility]. She states that she did have a 2-week follow-up after reports everything was normal at that time. She states that she delivered via at 39 weeks with no complications. She states that this is her first time bleeding after her procedure. She denies any fever, nausea, vomiting, diarrhea, dysuria, vaginal discharge. No past medical history. No allergies to medications. She is not breast-feeding. Vitals are normal. Patient has suprapubic abdominal tenderness on exam, no guarding, no rebound, no rigidity, no peritoneal signs,horizontal suprapubic incision from c- section appears clean,dry intact without signs of infection or wound dehiscence. Labs are stable. H&H is normal. hCG quant is less than 2. UA shows many red blood cells, there are some white blood cells and trace leukocyte esterase, do not suspect UTI, patient is not having urinary symptoms, I believe this is likely secondary due to contamination Pelvic ultrasound ordered and is pending, Dr. Javed Chaudhry, ER attending will follow up on ultrasound results ED Disposition Clinical Impression: Status post primary low transverse section Menorrhagia Qualifiers: Menorrhagia type: with irregular cycle Qualified Code(s): N92.1 - Excessive and frequent menstruation with irregular cycle Abdominal pain Qualifiers: Abdominal location: lower abdomen, unspecified Qualified Code(s): R10.30 - Lower abdominal pain, unspecified Disposition: 01 HOME / SELF CARE / HOMELESS Is pt being admited?: No Does the pt Need Aspirin: No Condition: Stable Instructions: Menorrhagia, [id number] Additional Instructions: Please take medication as prescribed. Increase your fluid intake. Practice pelvic rest. Follow-up with your MATERIAL PLANNING ANALYST. Return to emergency room for any new or worsening symptoms. Prescriptions: Naproxen 375 mg PO BID PRN #14 tablet PRN Reason: pain medroxyPROGESTERone ACETATE [Provera] 10 mg PO QDAY 10 Days #10 tablet Referrals: [facility], [Primary Care Provider] - 3-5 Days [facility] [Provider Group] - 3-5 Days Print Language: ROMANIAN <DELFINA CHAUDHRY - Last Filed: 09/19/21 22:00> ED Review of Systems ROS: Stated complaint: HEAVY BLEEDING, 5 WEEKS Other details as noted in HPI ED Course Vital Signs 09/19/21 09/19/21 18:19 19:02 Temperature 98.9 F 96.3 F L Pulse Rate 99 H 80 Respiratory 20 16 Rate Blood Pressure 121/96 Blood Pressure 114/58 [Right] O2 Sat by Pulse 99 100 Oximetry ED Medical Decision Making - Lab Data Result diagrams: 09/19/21 18:37 09/19/21 18:37 - Medical Decision Making I evaluated patient, Ultrasound: No significant abnormality no significant ovarian cyst or mass. Doppler flow to both ovaries. Stable vital signs. hCG is negative. No evidence of retained products. H&H within normal limits. Patient given reassurance. Recommended follow-up with wood caulker as needed. Patient given educated of supportive care instructions. Critical care attestation.: If time is entered above; I have spent that time in minutes in the direct care o f this critically ill patient, excluding procedure time. ED Disposition Is pt being admited?: No Does the pt Need Aspirin: No
[2021-09-19 19:20] LABS: Alanine Aminotransferase 12 units/L (7-56); Albumin 4.1 g/dL (3.9-5); Blood Urea Nitrogen 9 mg/dL (7-17); Calcium 9.1 mg/dL (8.4-10.2); Hemolysis Index 5
[2021-09-19 19:21] LABS: BUN/Creatinine Ratio 15
[2021-09-19 19:37] LABS: Bilirubin,Urine NEG (Negative); Blood,Urine LG (Negative); Color,Urine Yellow (Yellow); Protein,Urine <15 mg/dL mg/dL (Negative); Urobilinogen,Urine < 2.0 mg/dL (<2.0)
[2021-09-19 19:43] LABS: RBC,Urine > 182.0 /HPF (0.0-6.0)
--- NOTE | 2021-09-19 21:39 | Ultrasound Report ---
ULTRASOUND PELVIS INDICATION / CLINICAL INFORMATION: post heavy bleeding. TECHNIQUE: Transabdominal and Transvaginal. Duplex Color Doppler used: Yes. COMPARISON: None available FINDINGS: UTERUS: Uterus measures 8.4 x 4.7 x 6.8 cm and is homogeneous. Endometrial echo complex measures 0.5 cm. RIGHT ADNEXA: No significant ovarian cyst or mass. Normal color Doppler blood flow. Normal measuring 1.9 x 1.6 x 2.1 cm. LEFT ADNEXA: No significant ovarian cyst or mass. Normal color Doppler blood flow. Normal measuring 2 .5 x 1.6 x 2.2 cm. URINARY BLADDER: No significant abnormality. FREE FLUID: Minimal free fluid is likely physiologic. ADDITIONAL FINDINGS: None. IMPRESSION: 1. No significant abnormality. Signer Name: Fausto Becerra MD Signed: 09/19/2021 9:35 PM Workstation Name: [id number]
[2021-09-19 22:07] VITALS: BP 111/69
== END 2021-09-19 22:07 | disposition home or self-care (01) ==
LOC: ED 18:11
DX: N92.1 Excessive and frequent menstruation with irregular cycle (principal); Z87.59 Personal history of other complications of pregnancy, childbirth and the puerperium; R10.30 Lower abdominal pain, unspecified
CPT/HCPCS: 36415; 76830; 76856; 80053; 81001; 84702; 85025; 87086; 99284